=== PATIENT | female | born 1945 | race Native Hawaiian/Other Pacific Islander ===

== ENCOUNTER 2018-01-11 06:01 | Emergency (ER) | payer OTHER ==
[~2018-01-11] VITALS: Ht 154.9 cm; Wt 68.2 kg
[2018-01-11 06:13] LABS: GLUCOSE,POINT OF CARE 61 MG/DL (70-110)
[2018-01-11] MEDS ORDERED: LEVO150 PO (06:13)
[2018-01-11] MEDS ORDERED: ASPI81 PO (06:13)
[2018-01-11] MEDS ORDERED: XALA2.5OS OU (06:13)
[2018-01-11] MEDS ORDERED: AMLO-512 PO (06:13)
[2018-01-11] MEDS ORDERED: ATOR40TA28 PO (06:13)
[2018-01-11] MEDS ORDERED: DONE10TA8 PO (06:13)
[2018-01-11] MEDS ORDERED: LISI-662 PO (06:13)
[2018-01-11] MEDS ORDERED: INSNOV SQ (06:13)
[2018-01-11] MEDS ORDERED: VITAD1000 PO (06:13)
[2018-01-11] MEDS ORDERED: INSLAN SQ (06:13)
[2018-01-11] MEDS ORDERED: HYDR10TA31 PO (06:13)
[2018-01-11 07:09] LABS: BASOPHILS % (AUTO) 0.5 % (0.0-2.0); EOSINOPHILS % (AUTO) 2.3 % (1.0-6.0); HEMATOCRIT 32.1 % (36-46); HEMOGLOBIN 10.4 g/dL (12.0-16.0); MEAN CORPUSCULAR HEMOGLOBIN 33.9 pg (26.0-34.0); MEAN CORPUSCULAR HGB CONC 32.3 G/dL (31.0-37.0); MEAN CORPUSCULAR VOLUME 105 fL (80-100); MONOCYTES # (AUTO) 0.5 K/uL (0.1-1.0); MONOCYTES % (AUTO) 7.4 % (2.0-9.0); NEUTROPHILS # (AUTO) 3.2 K/uL (1.8-7.7); NEUTROPHILS % (AUTO) 46.8 % (40.0-70.0); PLATELET COUNT (AUTO) 184 K/uL (150-450); RED BLOOD CELL COUNT(AUTO) 3.05 MIL/uL (4.00-5.20); RED CELL DISTRIBUTION WIDTH 16.6 % (11.5-14.5)
[2018-01-11 07:23] LABS: CALCIUM, TOTAL 8.2 mg/dL (8.8-10.5); CREATININE 2.81 mg/dL (0.60-1.30); POTASSIUM 5.4 mmol/L (3.5-5.1)
[2018-01-11 07:29] LABS: ALBUMIN 3.2 g/dL (3.4-5.0); BILIRUBIN,TOTAL 0.3 mg/dL (0.1-1.0); TOTAL PROTEIN, SERUM 6.9 g/dL (6.4-8.2)
[2018-01-11] MEDS ORDERED: SODIUM POLYSTYRENE SULFONATE 15 GM/60 ML SUSPENSION BOTTLE PO ONE (07:45)
[2018-01-11 08:17] LABS: GLUCOSE,POINT OF CARE 81 MG/DL (70-110)
[2018-01-11 08:21] VITALS: BP 147/66
== END 2018-01-11 08:38 | disposition home or self-care (01) ==
LOC: EMS 06:02
DX: E11.649 Type 2 diabetes mellitus with hypoglycemia without coma (principal); I12.9 Hypertensive chronic kidney disease with stage 1 through stage 4 chronic kidney disease, or unspecified chronic kidney disease; E11.22 Type 2 diabetes mellitus with diabetic chronic kidney disease; N18.9 Chronic kidney disease, unspecified; E78.00 Pure hypercholesterolemia, unspecified; E03.9 Hypothyroidism, unspecified; Z79.4 Long term (current) use of insulin
CPT/HCPCS: 82962; 93005; 99285